=== PATIENT | female | born 2000 | race African-American/Black ===

== ENCOUNTER 2018-10-28 16:32 | Emergency (ER) | payer SELFPAY ==
[2018-10-28 16:39] VITALS: BP 119/61; PULSE 74; TEMP 98.3; BMI 21.9
--- NOTE | 2018-10-28 16:43 | PDOC ---
Rapid Medical Evaluation Time Seen by Provider: 10/28/18 16:35 Medical Evaluation: 10/28/18 16:36 I have performed a brief in-person evaluation of this patient The patient presents with a chief complaint of: 3 days of productive cough, chest tightness, fever yesterday. H/O asthma. Pertinent physical exam findings: Lungs CTA The patient will proceed to the ED for further evaluation Discharge Disposition - Diagnosis Upper respiratory infection Qualifiers: URI type: unspecified viral URI Qualified Code(s): J06.9 - Acute upper respiratory infection, unspecified - Referrals - Patient Instructions - Post Discharge Activity
--- NOTE | 2018-10-28 17:02 | PDOC ---
History of Present Illness - General Chief Complaint: Cold Symptoms Stated Complaint: PAIN Time Seen by Provider: 10/28/18 16:35 History Source: Patient Exam Limitations: No Limitations - History of Present Illness Initial Comments: Patient is a 18-year-old female who states over the past 2-3 days she has had a dry, nonproductive cough. She denies fever, denies chills, denies sick contacts or recent international travel. She denies history of asthma. She denies attempting [id number] medications. She denies pain. Pain is 0- 10. Denies aggravating or relieving factors. 10/28/18 16:59 Past History - Travel Traveled outside of the country in the last 30 days: No Close contact w/someone who was outside of country & ill: No - Past Medical History Anemia: No Asthma: Yes COPD: No - Immunization History Immunization Up to Date: Yes - Suicide/Smoking/Psychosocial Hx Smoking History: Never smoked Hx Alcohol Use: No Drug/Substance Use Hx: No Review of Systems - Review of Systems Able to Perform ROS?: Yes Constitutional: No: Chills, Fever Respiratory: Yes: Cough. No: Shortness of Breath, Wheezing, Productive cough, Hemoptysis All Other Systems: Reviewed and Negative *Physical Exam - Vital Signs Last Vital Signs Temp Pulse Resp BP Pulse Ox 98.3 F 74 116 H 119/61 99 10/28/18 16:36 10/28/18 16:36 10/28/18 16:36 10/28/18 16:36 10/28/18 16:36 - Physical Exam Comments: 10/28/18 17:02 Pulse rechecked at 97. Constitutional: VS stated, pt appears in no apparent distress; sitting in chair. Patient is able to speak in complete sentences without become short of breath. Skin: Warm and dry. Intact, no lesions or excoriations. Head: Normocephalic; atraumatic Eyes: conjunctiva pink without injection or discharge. Ears: No tenderness present. Canals without injection or discharge; TM clear, no retractions or bulging. Nose: Patent, mucosa pink. No drainage. Throat: Oropharynx with pink and moist mucosa. Dentition good. No pharyngeal edema; erythema or exudate. Tongue normal, no fasciculations. Airway Patent. Hypoglossal area is soft. Uvula is midline. No trismus. Neck: Supple, non-tender, with full ROM, trachea midline, no anterior/posterior cervical chain lymphadenopathy, thyroid nonpalpable. No stridor or bruits. Chest: Normal AP diameter, symmetrical excursions bilaterally, no retractions or bulging of the intercostal spaces. No pain or tenderness noted on palpation. Lungs: Bilateral breath sounds clear upon auscultation. No adventitious breath sounds. Heart: Regular rate and rhythm, S1/S2 auscultated. No murmurs, rubs, or gallops. No visible pulsations, heaves, or lifts on precordium. Musculoskeletal: Moves all extremities without difficulty. Neurologic: Awake, alert. Conversation fluent. Psychiatric: Appropriate affect. Moderate Sedation - Procedure Monitoring Vital Signs: Procedure Monitoring Vital Signs Temperature 98.3 F 10/28/18 16:36 Pulse Rate 74 10/28/18 16:36 Respiratory Rate 116 H 10/28/18 16:36 Blood Pressure 119/61 10/28/18 16:36 O2 Sat by Pulse Oximetry (%) 99 10/28/18 16:36 *DC/Admit/Observation/Transfer Diagnosis at time of Disposition: Cough Diagnosis at time of Disposition: (Ruled Out): Upper respiratory infection - Discharge Dispostion Disposition: HOME Condition at time of disposition: Good Decision to Admit order: No - Referrals - Patient Instructions Printed Discharge Instructions: How to Avoid a Cold or Flu - Post Discharge Activity Forms/Work/School Notes: Back to Work
== END 2018-10-28 17:08 | disposition home or self-care (01) ==
LOC: JERFT 16:32
DX: R05 Cough (principal)
CPT/HCPCS: 99281-25